=== PATIENT | female | born 1995 | race Caucasian/White ===

== ENCOUNTER 2020-11-03 14:39 | Outpatient (CLI) | payer OTHER ==
--- NOTE | 2020-11-03 16:05 | XRAY Report ---
PROCEDURE: Chest 2 View X-Ray INDICATIONS: CHEST PX TECHNIQUE: 2 view(s) of the chest. COMPARISON: None. FINDINGS: Surgical changes and devices: None. Lungs and pleura: No pleural effusions or pneumothorax. Lungs are clear. Mediastinum: Mediastinal contours are normal. Heart size is normal. Bones and chest wall: No suspicious bony abnormalities. Soft tissues appear unremarkable. IMPRESSION: No focal infiltrate, pleural effusion or pneumothorax. Reviewed by: Reymundo Brandon MD on 11/03/2020 4:04 PM PDT Approved by: Reymundo Brandon MD on 11/03/2020 4:04 PM PDT Station ID: [id number]
== END 2020-11-03 23:59 | disposition home or self-care (01) ==
LOC: DI.N 14:39
PROVIDERS: ATTEND Family Medicine
DX: R07.9 Chest pain, unspecified (principal)

== ENCOUNTER 2020-11-03 15:37 | Outpatient (CLI) | payer OTHER | END 2020-11-03 23:59 | disposition home or self-care (01) | LOC: LAB.N 15:37 | PROVIDERS: ATTEND Family Medicine | DX: R07.9 Chest pain, unspecified (principal) | CPT/HCPCS: 36415; 85379; 85651 ==

== ENCOUNTER 2021-06-22 08:00 | Outpatient (CLI) | payer OTHER ==
[2021-06-22 21:43] LABS: BILIRUBIN,URINE NEGATIVE (NEGATIVE); GLUCOSE, URINE (UA) NEGATIVE (NEGATIVE); KETONES,URINE (UA) TRACE mg/dL (NEGATIVE); LEUKOCYTE ESTERASE, URINE NEGATIVE (NEGATIVE); NITRITE,URINE NEGATIVE (NEGATIVE); OCCULT BLOOD,URINE NEGATIVE (NEGATIVE); PROTEIN,URINE NEGATIVE (NEGATIVE); UROBILINOGEN,URINE 0.2 (NORMAL) E.U./dL (NORMAL)
[2021-06-22 21:47] LABS: CLARITY,URINE CLEAR (CLEAR)
[2021-06-23 12:05] LABS: BASOPHILS # (AUTO) 0.1 10^3/uL (0.0-0.1); BASOPHILS % (AUTO) 0.8 %; EOSINOPHILS # (AUTO) 0.1 10^3/uL (0.0-0.7); EOSINOPHILS % (AUTO) 0.9 %; HCT - HEMATOCRIT 42.7 % (37.0-47.0); HGB - HEMOGLOBIN 13.3 g/dL (12.0-16.0); LYMPHOCYTES # (AUTO) 1.3 10^3/uL (1.5-3.5); LYMPHOCYTES % (AUTO) 21.1 %; MEAN CORPUSCULAR HEMOGLOBIN 29.2 pg (27.0-31.0); MEAN CORPUSCULAR HGB CONC 31.1 g/dL (32.0-36.0); MEAN CORPUSCULAR VOLUME 93.8 fL (81.0-99.0); MONOCYTES # (AUTO) 0.7 10^3/uL (0.0-1.0); MONOCYTES % (AUTO) 10.9 %; NEUTROPHILS # (AUTO) 4.2 10^3/uL (1.5-6.6); NEUTROPHILS % (AUTO) 66.1 %; PLT - PLATELET COUNT 187 10^3/uL (130-450); RED BLOOD COUNT 4.55 10^6/uL (4.20-5.40); RED CELL DISTRIBUTION WIDTH 14.6 % (12.0-15.0); WHITE BLOOD COUNT 6.3 x10^3/uL (4.8-10.8)
== END 2021-06-22 08:01 | disposition home or self-care (01) ==
LOC: LAB.N 08:00
PROVIDERS: ATTEND Nurse Practitioner
DX: K52.9 Noninfective gastroenteritis and colitis, unspecified (principal)
CPT/HCPCS: 36415; 80053; 81001; 81003; 82150; 83690; 84703; 85025; 87086

== ENCOUNTER 2023-06-08 10:08 | Day surgery (SDC) | payer OTHER ==
[2023-06-08] MEDS: LACTATED RINGERS 1,000 ML IV ONE ×2 (10:20→12:10)
[2023-06-08 10:40] LABS: HCG UR QUAL NEGATIVE
[2023-06-08] MEDS ORDERED: MIDAZOLAM 2 MG/2 ML VIAL ONE (10:43)
[2023-06-08] MEDS ORDERED: LIDOCAINE-PF 2% 10 ML AMP SUBQ ONE (10:44)
[2023-06-08] MEDS ORDERED: PROPOFOL 200 MG/20 ML VIAL IVP ONE (10:44)
--- NOTE | 2023-06-08 11:10 | HISTORY & PHYSICAL EXAMINATION ---
Chief Complaint - Chief Complaint Chief Complaint: here for nexplanon removal History of Present Illness - History Obtained From Records Reviewed: yes History obtained from: pt Exam Limitations: none - History of Present Illness HPI Comment/Other: she has a deep not palpable nexplanon. she would like to have it removed History - Past Medical History Cardiovascular: reports: None Respiratory: reports: None Endocrine/Autoimmune: reports: None GI: reports: None : reports: None HEENT: reports: None Psych: reports: None Musculoskeletal: reports: None Derm: reports: None MRSA Hx?: No Meds/Allgy - Home Medications Home Medications: Ambulatory Orders Medication Instructions Recorded Confirmed Etonogestrel [Nexplanon] 68 mg SUBQ DAILY 06/02/23 06/02/23 - Allergies Allergies/Adverse Reactions: Allergies Allergy/AdvReac Type Severity Reaction Status Date / Time No Known Drug Allergies Allergy Verified 06/02/23 12:32 Review of Systems - Other Findings Other Findings: 10 pt ros as above otherwise unremarkable Exam - Vital Signs Vital Signs: Vital Signs x48h Temp Pulse Resp BP Pulse Ox 06/08/23 10:31 37 C 62 17 110/65 99 - Physical Exam General Appearance: positive: No acute distress, Alert Eyes Bilateral: positive: PERRL, EOMI ENT: positive: No signs of dehydration Neck: positive: No JVD, Trachea midline Respiratory: positive: No respiratory distress Cardiovascular: positive: Regular rate & rhythm Conclusion/Plan - Problem List (1) Foreign body (FB) in soft tissue Conclusion/Plan: deep left upper arm nexplanon. not palpable and she would like to have it removed. plan preop ultrasound and removal under anesthesia. parq held and consent obtained
[2023-06-08] MEDS ORDERED: BUPIVACAINE 0.25% PF 30 ML VIAL ONE (11:16)
[2023-06-08] MEDS ORDERED: DEXAMETHASONE 4 MG/ML VIAL ONE (11:30)
[2023-06-08] MEDS ORDERED: ONDANSETRON 4 MG/2 ML VIAL ONE (11:30)
[2023-06-08] MEDS ORDERED: fentaNYL 100 MCG/2 ML VIAL ONE (11:32)
--- NOTE | 2023-06-08 11:35 | Ultrasound Report ---
PROCEDURE: Extremity Soft Tissue Limited INDICATIONS: please leonel location deep left upper arm nexplanon TECHNIQUE: Real-time scanning was performed of the medial left arm above the elbow, with image docum entation. COMPARISON: None. FINDINGS: Imaging utilized to identify the placement of a implanted device in the left arm. The loca tion was marked on the overlying skin for removal IMPRESSION: Ultrasound imaging utilized to leonel the location on the skin related to a implanted queenie ce, so that it can be removed. Reviewed by: Endy Antonio MD on 06/08/2023 11:34 AM PDT Approved by: Endy Antonio MD on 06/08/2023 11:34 AM PDT Station ID: [id number]
--- NOTE | 2023-06-08 11:37 | ANESTHESIA ---
Pre-Anesthesia VS, & Labs - Diagnosis nexplanaon implant - Procedure removal of same with US guidance Vital Signs: Temp Pulse Resp BP Pulse Ox O2 Flow Rate 37 C 62 17 110/65 99 06/08/23 10:31 06/08/23 10:31 06/08/23 10:31 06/08/23 10:31 06/08/23 10:31 Height: 5 ft 8 in Weight (kg): 59.87 kg Body Mass Index: 20.0 BMI Classification: Normal - NPO >8 hours - Is Patient ?: No - Lab Results Lab results reviewed: Yes Home Medications and Allergies Home Medications: Ambulatory Orders Etonogestrel [Nexplanon] 68 mg SUBQ DAILY 06/02/23 Etonogestrel [Nexplanon] 68 mg SUBQ DAILY 06/02/23 Allergies/Adverse Reactions: Allergies Allergy/AdvReac Type Severity Reaction Status Date / Time No Known Drug Allergies Allergy Verified 06/02/23 12:32 Anes History & Medical History - Anesthetic History Anesthesia Complications: reports: No previous complications Family history of Anesthesia Complications: Denies Family history of Malignant Hyperthermia: Denies - Medical History Cardiovascular: reports: None Pulmonary: reports: None Gastrointestinal: reports: None Urinary: reports: None Musculoskeletal: reports: None Endocrine/Autoimmune: reports: None Skin: reports: None Exam General: Alert, Oriented x3, Cooperative Dental: WNL Mouth Openin Fingerbreadth Neck Mobility: Normal Mallampati classification: II Thyromental Distance: 4-6 cm Respiratory: Lungs clear, Normal breath sounds, No respiratory distress Cardiovascular: Regular rate Neurological: Normal speech Mental/Cognitive Status: Alert/Oriented X3, Normal for patient Cognitive Status: Within normal limits Plan Anesthesia Type: General Consent for Procedure(s) Verified and Reviewed: Yes Code Status: Attempt Resuscitation ASA classification: 2-Mild systemic disease Is this case an emergency?: No
[2023-06-08] MEDS: BUPIVACAINE 0.25% PF 30 ML VIAL SUBQ ONE ×2 (11:49)
[2023-06-08] MEDS ORDERED: METOCLOPRAMIDE 10 MG/2 ML VIAL IVP PRN (12:11)
[2023-06-08] MEDS ORDERED: HYDROmorphone 0.5 MG/0.5 ML SYRINGE IVP PRN (12:11)
[2023-06-08] MEDS ORDERED: fentaNYL 100 MCG/2 ML VIAL IVP PRN (12:11)
[2023-06-08] MEDS ORDERED: ATROPINE ABBOJECT 1 MG/10 ML SYRINGE IVP PRN (12:11)
[2023-06-08] MEDS ORDERED: ONDANSETRON 4 MG/2 ML VIAL IVP PRN (12:11)
[2023-06-08] MEDS ORDERED: ePHEDrine 50 MG/ML VIAL IVP PRN (12:11)
[2023-06-08] MEDS ORDERED: NALOXONE 0.4 MG/ML VIAL IVP PRN (12:11)
[2023-06-08] MEDS ORDERED: MORPHINE 2 MG/ML CARPUJECT IVP PRN (12:11)
--- NOTE | 2023-06-08 12:14 | OPERATIVE REPORT ---
Operative Report - General Procedure Date: 06/08/23 Planned Procedure: removal deep left upper arm nexplanon Pre-Op Diagnosis: deep left upper arm nexplanon Procedure Performed: removal deep intramuscular left upper arm nexplanon Post Op Diagnosis: same - Procedure Note Primary Surgeon: britany shepard Anesthesia Technique: General LMA, Local Pathology: nexplanon given to pt Estimated Blood Loss (mL): 0 Drain/Tube Type: Other (none) Indications: unwanted nexplanon Findings: nexplanon in the biceps muscle 1 cm deep to fascia Complications: none - Other Other Information/Narrative: The patient was properly identified brought to the operating room and placed in supine position. The location of the Nexplanon was marked by ultrasound prior to procedure. The Nexplanon was not palpable. Laryngeal mask anesthesia was induced.Her left arm was circumferentially prepped and draped in a sterile fashion. Antibiotics were not given. A 2 to 3 cm incision was made over the ultrasound leonel. Dissection proceeded down through the subcutaneous tissue. Fascia overlying the biceps muscle was divided with cutting current cautery. The Nexplanon was now palpable. Muscle fibers were in the direction of their fibers. The Nexplanon was identified and removed without injury to the muscle. Hemostasis was assured. Fascia was closed with interrupted 3-0 Vicryl suture. Subcutaneous tissue was reapproximated with interrupted 3-0 Vicryl. Buried interrupted subdermal 3-0 Vicryl sutures were then placed. Epidermis was closed with a running 4-0 Monocryl subcuticular suture. Dressing was applied. She tolerated the procedure well.
[2023-06-08 12:46] VITALS: BP 95/74; O2SAT 99
[2023-06-08] MEDS ORDERED: LACTATED RINGERS 1,000 ML IV SCH (13:00)
--- NOTE | 2023-06-08 13:09 | ANESTHESIA POST OP EVALUATION ---
Anesthesia Post Eval - Post Anesthesia Eval Vitals: Last Vital Signs Temp 36.6 C 06/08/23 12:25 Pulse 55 L 06/08/23 12:42 Resp 12 06/08/23 12:42 BP 95/74 06/08/23 12:42 Pulse Ox 99 06/08/23 12:42 O2 Flow Rate CV Function Including HR & BP: Stable Pain Control: Satisfactory Nausea & Vomiting: Negative Mental Status: Baseline Respiratory Status: Airway Patent Hydration Status: Satisfactory Anesthesia Complications: None
== END 2023-06-08 10:09 | disposition home or self-care (01) ==
LOC: SDS 10:08
PROVIDERS: ATTEND Surgery
DX: Z30.8 Encounter for other contraceptive management (principal)
CPT/HCPCS: 11982; 76882; 81025; J7120